=== PATIENT | female | born 1980 | race American Indian/Alaskan Native ===

== ENCOUNTER 2016-06-03 11:03 | Outpatient (CLI) | payer BC ==
--- NOTE | 2016-06-03 12:09 | Mammography Report ---
Bilateral mammogram: The patient is post right lumpectomy, radiation and chemotherapy. Comparison is made to her prior screening exam in May 2015 as well as a diagnostic right breast exam in June 2015. There has been surgical removal of most of the right breast calcifications. There is a small grouping of microcalcifications adjacent to the surgical site which is slightly pleomorphic but not as dense and appear somewhat different than the original grouping. Magnification views were obtained. Additionally noted are scattered microcalcifications throughout the right breast that are not clearly identified on her prior mammograms. None of these are overtly suspicious. The overall breast pattern remains dense but not significantly changed. There is marked thickening of the skin in the lateral breast consistent with radiation. Left breast pattern appears unchanged from her prior study in May. CAD used. Impressions: Postoperative/treatment changes of right breast cancer. The residual calcifications in the area of cancer do not appear the same as the original calcifications. Other calcifications in the breast appear to be new but do not appear suspicious and may be related to her therapy. Recommendation: Repeat right mammogram in 6 months to reevaluate the calcifications. BI-RADS CATEGORY: 3 = Probably benign ACR BI-RADS MAMMOGRAPHIC CODES: 0 = Needs additional imaging evaluation; 1 = Negative; 2 = Benign; 3 = Probably benign; 4 = Suspicious; 5 = Malignant; 6 = Known biopsy-proven malignancy COMMENT: 1. Dense breast tissue, i.e., adenosis, fibrocystic changes, etc., may obscure an underlying neoplasm. 2. Approximately 10% of cancers are not detected with mammography. 3. A negative mammography report should not delay biopsy if a clinically suspicious mass is present.
== END 2016-06-03 11:04 | disposition home or self-care (01) ==
LOC: SPVWC 11:03
PROVIDERS: ATTEND Surgery
DX: R92.0 Mammographic microcalcification found on diagnostic imaging of breast (principal); Z85.3 Personal history of malignant neoplasm of breast; Z98.890 Other specified postprocedural states
CPT/HCPCS: 77066; G0204

== ENCOUNTER 2016-11-18 09:50 | Outpatient (CLI) | payer BC ==
--- NOTE | 2016-11-18 11:06 | Mammography Report ---
RIGHT DIGITAL DIAGNOSTIC MAMMOGRAM WITH CAD: 11/18/16 09:50:00 CLINICAL: History of breast cancer status post partial mastectomy, radiation therapy and chemotherapy. Persistent calcifications are being followed. COMPARISON:06/03/16 FINDINGS: The breast is heterogeneously dense, which may obscure small masses.Routine views without and with magnification were performed and demonstrate a few scattered predominantly outer calcifications with no suspicious forms. A linear and pleomorphic calcifications identified on the last exam are no longer seen. No mass or architectural distortion. IMPRESSION: No mammographic evidence of malignancy. BI-RADS CATEGORY: 2 -- Benign RECOMMENDATION: Routine mammographic screening. She will be due for a bilateral mammogram in May 2017. ACR BI-RADS MAMMOGRAPHIC CODES: 0 = Needs additional imaging evaluation; 1 = Negative; 2 = Benign; 3 = Probably benign; 4 = Suspicious; 5 = Malignant; 6 = Known biopsy-proven malignancy COMMENT: 1. Dense breast tissue, i.e., adenosis, fibrocystic changes, etc., may obscure an underlying neoplasm. 2. Approximately 10% of cancers are not detected with mammography. 3. A negative mammography report should not delay biopsy if a clinically suspicious mass is present. COMMENT: Patient follow-up letters are generated via our [employer] application.
== END 2016-11-18 09:51 | disposition home or self-care (01) ==
LOC: SPVWC 09:50
PROVIDERS: ATTEND Surgery
DX: R92.1 Mammographic calcification found on diagnostic imaging of breast (principal); Z85.3 Personal history of malignant neoplasm of breast; Z90.10 Acquired absence of unspecified breast and nipple
CPT/HCPCS: G0206-RT

== ENCOUNTER 2017-06-10 09:47 | Outpatient (CLI) | payer BC ==
--- NOTE | 2017-06-10 10:42 | Mammography Report ---
BILATERAL DIGITAL SCREENING MAMMOGRAM WITH CAD: 06/10/17 09:47:00 CLINICAL: Routine screening.Breast cancer survivor status post right partial mastectomy . COMPARISON:06/09/15 screening and right mammograms from 11/18/16 and 06/03/16. FINDINGS: The breasts are heterogeneously dense, which may obscure small masses. Stable right upper outer postsurgical scar. A few benign calcifications in the upper-outer right breast. Stable mild skin thickening of the right breast. No mass, suspicious architectural distortion or suspicious calcifications. IMPRESSION: No mammographic evidence of malignancy. BI-RADS CATEGORY: 2 -- Benign RECOMMENDATION: Routine mammographic screening in one year. COMMENT: Patient follow-up letters are generated via our [email or web address] application.
== END 2017-06-10 09:48 | disposition home or self-care (01) ==
LOC: SPVWC 09:47
PROVIDERS: ATTEND Surgery
DX: Z12.31 Encounter for screening mammogram for malignant neoplasm of breast (principal); Z90.11 Acquired absence of right breast and nipple
CPT/HCPCS: 77067

== ENCOUNTER 2018-06-16 08:21 | Outpatient (CLI) | payer BC ==
--- NOTE | 2018-06-16 09:22 | Mammography Report ---
BILATERAL DIGITAL SCREENING MAMMOGRAM WITH CAD: 06/16/18 08:21:00 CLINICAL: Routine screening.Breast cancer survivor status post right partial mastectomy and radiation therapy. COMPARISON:06/10/17 FINDINGS: The breasts are heterogeneously dense, which may obscure small masses. Stable right upper outer postsurgical scar. No mass, suspicious architectural distortion or suspicious calcifications. IMPRESSION: No mammographic evidence of malignancy. BI-RADS CATEGORY: 2 -- Benign RECOMMENDATION: Routine mammographic screening in one year. COMMENT: Patient follow-up letters are generated via our [employer] application.
== END 2018-06-16 08:22 | disposition home or self-care (01) ==
LOC: SPVWC 08:21
PROVIDERS: ATTEND Surgery
DX: Z12.31 Encounter for screening mammogram for malignant neoplasm of breast (principal); E78.00 Pure hypercholesterolemia, unspecified; J45.909 Unspecified asthma, uncomplicated
CPT/HCPCS: 77067

== ENCOUNTER 2020-05-09 09:42 | Outpatient (CLI) | payer BC ==
--- NOTE | 2020-05-09 12:40 | Magnetic Resonance Report ---
Bilateral breast MR without and with contrast. History: History of right upper outer breast malignancy, status post right breast lumpectomy. Patient has a recent diagnosis of DCIS within the right lateral breast (stereotactic biopsy performed at an outside facility). Comparison: 06/16/2018, 07/20/2015. Technique: Multiplanar multisequence MR images of the breast were obtained before and after the intra venous administration of 15 mL of Clariscan contrast agent. Post processing analysis and review was p erformed on a separate computer workstation. Findings: Breast composition is heterogeneously dense. There is mild background enhancement in both breasts. RIGHT BREAST: Located within the right breast at the 9:00 anterior position is a 1.9 x 1.1 x 1.2 cm h ematoma. A biopsy marker is located centrally within this mass. This likely represents the site of re cently reported stereotactic biopsy which revealed DCIS. No enhancing mass, non-masslike enhancement, or other abnormal enhancement is identified at this site or elsewhere within the right breast. Posts urgical changes within the right lateral posterior breast is noted at site of prior lumpectomy with s mall seroma noted. LEFT BREAST: No enhancing mass, dominant focus, or other abnormal enhancement is identified within th e left breast. No abnormal axillary or internal mammary lymph nodes. Impression: There is a small hematoma in the right breast at the 9:00 anterior position. This likely reflects the site of outside stereotactic biopsy which revealed DCIS. No suspicious enhancement is identified wit hin the right breast. No findings to suggest further extent of disease, however MRI is not entirely s ensitive for the detection of DCIS. BIRADS 6: Known biopsy proven malignancy. A normal MRI does not exclude the presence of some forms of breast malignancy as literature reports s uggest that some forms of ductal carcinoma in situ or lobular carcinoma, particularly, may not be det ected on MRI. The sensitivity and specificity of MRI for cancers under 5 mm may be reduced. MRI does not replace the recommendation for annual conventional mammographic evaluation and should be used as an adjunct to mammography and physical examination as necessary. Signer Name: Michael Alfonso MD Signed: 05/09/2020 12:35 PM Workstation Name: [id number]
== END 2020-05-09 09:43 | disposition home or self-care (01) ==
LOC: SPVIMAG 09:42
PROVIDERS: ATTEND Surgery
DX: C50.411 Malignant neoplasm of upper-outer quadrant of right female breast (principal); N64.89 Other specified disorders of breast
CPT/HCPCS: A9575; C8908; 77049

== ENCOUNTER 2020-06-21 09:01 | Observation (INO) | payer BC ==
--- NOTE | 2020-06-16 13:20 | Anesthesia Consultation ---
Anesthesia Consult and Med Hx Date of service: 06/21/20 - Airway Anesthetic Teeth Evaluation: Good ROM Head & Neck: Adequate Mental/Hyoid Distance: Adequate Mallampati Class: Class II Intubation Access Assessment: Probably Good - Pulmonary Exam CTA: Yes - Cardiac Exam Cardiac Exam: RRR - Pre-Operative Health Status ASA Pre-Surgery Classification: ASA2 Proposed Anesthetic Plan: General Nerve Block: PECS II vs ES - Pulmonary Hx Smoking: No Hx Asthma: Yes (no recent inhaler use) Hx Respiratory Symptoms: No (COVID 02/2020, no hospitalization; persistent loss of taste/smell only) - Cardiovascular System Hx Hypertension: No Hx Heart Attack/AMI: No - Central Nervous System CVA: No - Endocrine Hx Renal Disease: No Hx Liver Disease: No Hx Insulin Dependent Diabetes: No Hx Non-Insulin Dependent Diabetes: No Hx Thyroid Disease: No - Other Systems Hx Cancer: Yes (hx breast ca s/p chemo 2016) - Additional Comments Anesthesia Medical History Comments: Hx PDPH w/ epidural but no complications with GA. Had outpatient labs drawn recently; records requested.
[~2020-06-21 09:01] MED LIST: ACETAMINOPHEN 500 MG TAB PO SCH; BACITRACIN 50,000 UNIT VIAL IR ONE; CELECOXIB 200 MG CAP PO NR; GABAPENTIN 300 MG CAP PO NR; GENTAMICIN 40 MG/ML VIAL 2 ML IV ONE; LACTATED RINGERS 1,000 ML IV SCH; MIDAZOLAM 2 MG/2 ML INJ IV NR; SCOPOLAMINE TRANSDERMAL PATCH 72 HR TD NR; VANCOMYCIN 1,250 MG in SODIUM CHLORIDE 0.9% 500 ML 250 ML IV ONE; WATER FOR IRRIG STERILE 1,500 ML BOTTLE IR ONE; ceFAZolin 1 GM VIAL IV ONE; fentaNYL 100 MCG/2 ML INJ IV PRN
[2020-06-21] MEDS ORDERED: METHYLENE BLUE 50 MG/10 ML AMP ONE (09:52)
[2020-06-21] MEDS ORDERED: GENTAMICIN 40 MG/ML VIAL 2 ML ONE (09:53)
[2020-06-21] MEDS ORDERED: SODIUM CHLORIDE P/F VIAL 10 ML 30 ML ONE (09:53)
[2020-06-21] MEDS ORDERED: BACITRACIN 50,000 UNIT VIAL ONE (09:53)
[2020-06-21] MEDS ORDERED: ceFAZolin 1 GM VIAL ONE (09:54)
[2020-06-21] MEDS ORDERED: ONDANSETRON 4 MG/2 ML INJ IV PRN ×2 (10:23→15:00)
[2020-06-21] MEDS ORDERED: HYDROmorphone 1 MG/1 ML INJ IV PRN (10:23)
--- NOTE | 2020-06-21 10:23 | Anesthesia Day of Surgery ---
Anesthesia Day of Surgery - Day of Surgery Patient Examined: Yes Patient H&P Reviewed: Yes Patient is NPO: Yes
[2020-06-21] MEDS ORDERED: BUPIVACAINE/PF (0.25%) 2.5 MG/ML 30 ML VIAL INFILTRATI ONE (11:02)
[2020-06-21] MEDS ORDERED: dexAMETHasone 4 MG/ML VIAL ONE (11:02)
[2020-06-21] MEDS ORDERED: fentaNYL 100 MCG/2 ML INJ ONE (11:29)
[2020-06-21] MEDS ORDERED: ROCURONIUM 50 MG/5 ML INJ IV ONE (11:29)
[2020-06-21] MEDS ORDERED: LIDOCAINE MPF (2%) 20 MG/1 ML VIAL 5 ML ONE (11:29)
[2020-06-21] MEDS ORDERED: propofoL 200 MG/20 ML VIAL IV ONE (11:30)
[2020-06-21] MEDS ORDERED: VANCOMYCIN 1,250 MG in SODIUM CHLORIDE 0.9% 500 ML 250 ML IV ONE (11:30)
[2020-06-21] MEDS ORDERED: SODIUM CHLORIDE 0.9% P/F 10 ML VIAL INFILTRATI ONE (11:57)
[2020-06-21] MEDS ORDERED: METHYLENE BLUE 50 MG/10 ML AMP IRRIGATION ONE (11:57)
[2020-06-21] MEDS ORDERED: PHENYLEPHRINE/NS 1,000 MCG/10 ML SYRINGE (OR USE) IV ONE (12:27)
[2020-06-21] MEDS ORDERED: SODIUM CHLORIDE 0.9% IRR 1,500 ML BOTTLE IR ONE ×2 (12:37→14:16)
[2020-06-21] MEDS ORDERED: WATER FOR IRRIG STERILE 1,500 ML BOTTLE IR ONE (14:07)
--- NOTE | 2020-06-21 14:14 | Mammography Report ---
BREAST SPECIMEN RADIOGRAPH HISTORY: Lumpectomy FINDINGS/IMPRESSION: The submitted radiograph or radiographs demonstrate(s) the presence of 2 biopsy markers within fibrog landular tissue. No localization wire is present. Signer Name: Debi Trinidad MD Signed: 06/21/2020 2:10 PM Workstation Name: [id number]
[2020-06-21] MEDS ORDERED: BACITRACIN 50,000 UNIT VIAL IR ONE (14:16)
[2020-06-21] MEDS ORDERED: GENTAMICIN 40 MG/ML VIAL 2 ML IV ONE (14:16)
[2020-06-21] MEDS ORDERED: ceFAZolin 1 GM VIAL IV ONE (14:16)
--- NOTE | 2020-06-21 14:21 | Short Stay Summary ---
Short Stay Documentation Date of service: 06/21/20 - History H&P: obtained from office - Allergies and Medications Current Medications: Allergies amoxicillin Allergy (Verified 06/14/20 17:09) Hives Home Medications Medication Instructions Recorded Confirmed Last Taken Type Anastrozole [Arimidex] 1 mg PO DAILY 06/14/20 06/14/20 06/20/20 History Calcium Citrate/Vitamin D3 1 each PO DAILY 06/14/20 06/14/20 06/20/20 History [Citracal + D Maximum Caplet] Fexofenadine HCl [Carrie Allergy] 180 mg PO DAILY 06/14/20 06/14/20 06/20/20 History Venlafaxine [Effexor 25mg tab] 25 mg PO DAILY 06/14/20 06/14/20 06/20/20 History Vit C/Vit D3/E/Zinc/Elderberry 1 each PO DAILY 06/14/20 06/14/20 06/20/20 History [Airborne Elderberry Gummy] Active Medications Acetaminophen (Acetaminophen 500 Mg Tab) 1,000 mg PO PREOP SCOTT Stop: 06/21/20 23:59 Last Admin: 06/21/20 10:30 Dose: 1,000 mg Documented by: Fentanyl (Fentanyl 100 Mcg/2 Ml Inj) 100 mcg IV ONCE PRN PRN Reason: sedation for nerve block Last Admin: 06/21/20 11:07 Dose: 100 mcg Documented by: Gabapentin (Gabapentin 300 Mg Cap) 300 mg PO PREOP NR Stop: 06/21/20 23:59 Last Admin: 06/21/20 10:30 Dose: 300 mg Documented by: Hydromorphone HCl (Hydromorphone 1 Mg/1 Ml Inj) 0.25 mg IV Q10MIN PRN PRN Reason: Pain, Moderate (4-6) Stop: 06/21/20 23:00 Hydromorphone HCl (Hydromorphone 1 Mg/1 Ml Inj) 0.5 mg IV Q10MIN PRN PRN Reason: Pain , Severe (7-10) Stop: 06/21/20 23:00 Lactated Ringer's (Lactated Ringers) 1,000 mls @ 100 mls/hr IV DIRECT SCOTT Stop: 06/21/20 23:59 Last Admin: 06/21/20 10:40 Dose: 100 mls/hr Documented by: Midazolam HCl (Midazolam 2 Mg/2 Ml Inj) 2 mg IV PREOP NR Stop: 06/21/20 23:59 Last Admin: 06/21/20 11:07 Dose: 2 mg Documented by: Ondansetron HCl (Ondansetron 4 Mg/2 Ml Inj) 4 mg IV ONCE PRN PRN Reason: Nausea And Vomiting Stop: 06/21/20 23:00 Scopolamine (Scopolamine Transdermal Patch 72 Hr) 1 each TD PREOP NR Stop: 06/24/20 05:59 Last Admin: 06/21/20 10:34 Dose: 1 each Documented by: - Brief post op/procedure progress note Date of procedure: 06/21/20 Pre-op diagnosis: Central breast DCIS Post-op diagnosis: same Procedure: Right total mastectomy with attempted SLNB Anesthesia: GETA Findings: Right total mastectomy with x2 clips present; no uptake within the axilla Surgeon: SHANTHI GONZALEZ Estimated blood loss: other (50 cc) Pathology: list Specimen disposition: to lab Condition: stable - Disposition Condition at discharge: Good Disposition: DC/TX-02 SHRT-TRM GEN HOSP IP Short Stay Discharge Plan Activity: other (no heavy lifting) Diet: regular Wound: keep clean and dry Follow up with: SHANTHI GONZALEZ MD [Staff Physician] - 7 Days
[2020-06-21] MEDS ORDERED: ePHEDrine SULFATE 50 MG/1 ML INJ ONE (14:24)
[2020-06-21] MEDS ORDERED: ONDANSETRON 4 MG/2 ML INJ ONE (14:36)
--- NOTE | 2020-06-21 14:38 | Operative Report ---
Operative Report Operative Report: Operative Report: Date of Service: June 21, 2020 Preoperative diagnosis: Right breast cancer of the central quadrant Postoperative diagnosis: Same Procedure: Right total mastectomy with attempted sentinel lymph node biopsy Surgeon: Rosa Eckert M.D. Guide Excursion: Jennifer Farnsworth M.D. Anesthesia: Gen. Findings: Right breast clips x2 present within right total mastectomy; attempted sentinel lymph node biopsy with no uptake Complications: None Drains: per Plastic Surgery Estimated blood loss: 50 cc Disposition: Plastic surgery proceeded with bilateral tissue environmental planning engineer placement Indications for operative procedure: This is a 39-year-old lady with a personal history of Stage I right breast cancer, [id number] ER/IL positive post right lumpectomy with SLNB followed by adjuvant chemoradiation therapy. Most recent screening and diagnostic right mammogram of suspicious retroareolar, central breast calcifications and stereotactic biopsy findings of intermediate grade DCIS ER/IL positive. Recommendations were to proceed with a right total mastectomy given prior radiation therapy and breast conservation contraindicated. She met with PRS and wished to proceed with immediate right tissue environmental planning engineer placement. She wished to proceed with the above procedure. Procedure in detail: Anesthesia placed right pectoral block. The patient was taken to the operating room and was placed supine. Gen. anesthesia was administered. The right nipple was injected with radioisotope and 1 cc of methylene blue. Right chest and axilla were prepped and draped in the normal sterile operative fashion. Timeout was performed. Typical mastectomy incision marking was made encompassing the NAC and known area of cancer retroareolar. Attention was taken towards the right breast. A gamma probe was inserted into the axilla to identify the sentinel lymph node location with no uptake noted within the axilla. A skin incision was made with a 10 blade knife and dissection taken down to the subcutaneous tissues. First began raising of the superior flap to the level of the clavicle superiorly and posteriorly to the pectoralis muscle. Followed by raising of the medial flap to the level of the sternum and posteriorly to the pectoralis muscle. Followed by raising of the lateral flap to the level of the latissimus dorsi muscle and taken down posteriorly. The gamma probe was inserted into the axilla, the axillary fascia was opened and no uptake within the axilla was present. No blue dye present as well and patient with prior right sentinel lymph node biopsy. Ultrasound was used and no suspicious or abnormal axillary lymph nodes were present. Given no abnormal axillary lymph nodes present clinically or on diagnostic imaging and patient with DCIS, did not proceed with an ALND. Then proceeded with raising of the inferior flap to the level of the inframammary fold taken posterior to the pectoralis muscle. Lateral breast at incision around 9:30 and upper outer quadrant noted for fibrosis, most probable given prior radiation and surgery. Upper outer quadrant at fibrotic area mastectomy skin flap was revised to ensure proper flap. The mastectomy/breast was removed from the pectoralis muscle without incident. The specimen was appropriately marked and sent to radiology with findings of x2 breast clips present and sent to pathology. Hemostasis was obtained. The chest wall cavity was irrigated. Plastic Surgery then proceeded with right tissue environmental planning engineer placement.
[2020-06-21] MEDS ORDERED: SODIUM CHLORIDE 0.9% 1000 ML 1,000 ML ONE (14:52)
[2020-06-21] MEDS ORDERED: SODIUM CHLORIDE 0.9% 1000 ML IV SOLN IR ONE (14:59)
[2020-06-21] MEDS ORDERED: diphenhydrAMINE 25 MG CAP PO PRN (15:00)
[2020-06-21] MEDS ORDERED: LACTATED RINGERS 1,000 ML IV SCH (15:00)
[2020-06-21] MEDS ORDERED: oxyCODONE /ACETAMINOPHEN 5-325MG TAB PO PRN (15:00)
[2020-06-21] MEDS ORDERED: ACETAMINOPHEN 325 MG TAB PO PRN (15:00)
[2020-06-21] MEDS ORDERED: METOCLOPRAMIDE 10 MG TAB PO PRN (15:00)
[2020-06-21] MEDS: HYDROmorphone 1 MG/1 ML INJ IV PRN ×2 (15:42→15:58)
--- NOTE | 2020-06-21 16:16 | Operative Report ---
DATE OF SURGERY: 06/21/2020 PREOPERATIVE DIAGNOSIS: Right breast cancer. POSTOPERATIVE DIAGNOSIS: Right breast cancer. PROCEDURE: Immediate breast reconstruction with tissue safety instructor and acellular dermal matrix. SURGEON: Dr. Augustine Monroe Jr. RETAIL CUSTOMER SERVICE REPRESENTATIVE: Dr. Alex Farnsworth. ANESTHESIA: General endotracheal tube anesthesia. DRAINS: ESCOBAR x2. SPECIMENS: None. COMPLICATIONS: None. ESTIMATED BLOOD LOSS: 10 mL. INDICATIONS: The patient is a 39-year-old woman, who presents with DCIS involving the right breast and is to undergo a formal mastectomy as performed by Dr. Eckert. We discussed reconstructive options with the patient and ultimately she has decided to proceed with immediate tissue safety instructor and ADM reconstruction. She understands the staged nature of reconstructive breast surgery and the need for subsequent procedures. Nature of the surgery, technical aspects, typical recovery period and potential risks involved were discussed fully including but not limited to postop bleeding, infection, pronounced scarring, hematoma or seroma formation, areas of paresthesias, numbness or pain which may be permanent, delayed healing, wound dehiscence, capsular contracture, asymmetry (anticipated), failure to achieve anticipated goals, need for revision or future surgery. DESCRIPTION OF PROCEDURE: The patient was already anesthetized. Dr. Eckert and I completed the right mastectomy. Flaps were inspected and were deemed of adequate thickness to proceed. Meticulous hemostasis throughout the case was accomplished with electrocautery. Subpectoral pocket was developed under direct vision with division of the inferior and inferomedial border of the pectoralis major muscle. A triply hydrated segment of FlexHD acellular dermal matrix was inserted into the lower pole after being oriented. This was a shaped, pliable and perforated 11 x 20 cm sheet and was sewn down to the chest wall at the inframammary fold set point with interrupted 0 PDS sutures. The superior border once trimmed to the appropriate size was sewn to the inferior border of the pectoralis major muscle with a running 0 Vicryl suture. A deflated [place] tissue safety instructor [id number] was placed into the subpectoral and sub-ADM pocket. The tabs were sewn down to the chest wall with interrupted 2-0 Vicryl suture. A deep 10-Russian ESCOBAR drain was placed and the superficial 7 mm ESCOBAR drain was placed exiting placed with 2-0 silk. The pocket was irrigated with copious amounts of triple antibiotic solution comprised of Ancef, gentamicin and bacitracin. Closure was then facilitated with a running 2-0 Vicryl at the level of subcutaneous tissue plane, 3-0 Monocryl at the level of deep dermis in interrupted manner and a running subcuticular 4-0 Monocryl stitch and then Dermabond skin glue. were placed at the ESCOBAR sites and dressings applied. The patient tolerated the procedure well, was extubated and transferred to the recovery area in stable condition. TID: [id number] RECEIPT: [id number] /NASIM/ANGELO
--- NOTE | 2020-06-21 19:19 | Post Anesthesia Evaluation ---
- Post Anesthesia Evaluation Patient Participated: Yes Airway Patent: Yes Stable Respiratory Function: Yes Nausea/Vomiting: No Temp > 96.8F: Yes Pain Manageable: Yes Adequeate Hydration: Yes Anesthesia Complications: No Block Receding Appropriately: Yes Patient on Ventilator: No
[2020-06-21] MEDS: MORPHINE 2 MG/1 ML INJ IV PRN ×2 (19:38→23:28)
[2020-06-21] MEDS: CLINDAMYCIN 300 MG CAP PO SCH (20:05)
[2020-06-21] MEDS ORDERED: DOCUSATE SODIUM 100 MG CAP PO SCH (22:00)
[2020-06-22] MEDS: HYDROmorphone 2 MG TAB PO PRN ×2 (02:03→11:06)
[2020-06-22] MEDS: CLINDAMYCIN 300 MG CAP PO SCH (08:12)
--- NOTE | 2020-06-22 12:26 | Progress Note ---
Assessment and Plan This is a 39 year old lady with right breast DCIS, Stage 0; personal history of Stage I right breast cancer. POD#1 right total mastectomy with tissue outdoor adventure guides placement. 1. No acute events overnight. 2. Pain in good control. 3. Right chest incision healing well. 4. ESCOBAR drain education. 5. OOB to hallway. 6. D/C planning for today. Subjective Date of service: 06/22/20 Principal diagnosis: Right breast cancer Interval history: POD#1 right total mastectomy with attempted SLNB and tissue outdoor adventure guides placement Objective - Constitutional Vitals: Vital Signs - 12hr 06/22/20 06/22/20 06/22/20 01:30 05:12 08:11 Temperature 98.7 F 98.9 F 98.2 F Pulse Rate 83 85 71 Respiratory 18 20 18 Rate Blood Pressure 128/80 119/71 132/80 O2 Sat by Pulse 100 100 100 Oximetry General appearance: Present: no acute distress - EENT Eyes: PERRL, EOM intact ENT: hearing intact, clear oral mucosa, dentition normal Ears: bilateral: normal - Neck Neck: supple, normal ROM - Respiratory Respiratory effort: normal - Breasts Breasts: other (right chest incision healing well, skin well perfused, no hematoma; ESCOBAR drains to bulb suction) - Cardiovascular Rhythm: regular Extremities: no ischemia, pulses intact, pulses symmetrical, No edema, normal temperature, normal color, Full ROM - Gastrointestinal General gastrointestinal: Present: soft, non-tender, non-distended Rectal Exam: deferred - Genitourinary Female genitourinary: deferred - Integumentary Integumentary: clear, warm, dry - Musculoskeletal Musculoskeletal: strength equal bilaterally - Neurologic Neurologic: CNII-XII intact, moves all extremities - Psychiatric Psychiatric: appropriate mood/affect, intact judgment & insight, memory intact, cooperative Medications & Allergies - Medications Allergies/Adverse Reactions: Allergies amoxicillin Allergy (Verified 06/14/20 17:09) Hives Home Medications: Home Medications Medication Instructions Recorded Confirmed Last Taken Type Anastrozole [Arimidex] 1 mg PO DAILY 06/14/20 06/14/20 06/20/20 History Calcium Citrate/Vitamin D3 1 each PO DAILY 06/14/20 06/14/20 06/20/20 History [Citracal + D Maximum Caplet] Fexofenadine HCl [Carrie Allergy] 180 mg PO DAILY 06/14/20 06/14/20 06/20/20 History Venlafaxine [Effexor 25mg tab] 25 mg PO DAILY 06/14/20 06/14/20 06/20/20 History Vit C/Vit D3/E/Zinc/Elderberry 1 each PO DAILY 06/14/20 06/14/20 06/20/20 History [Airborne Elderberry Gummy] Active Medications: Generic Name Dose Route Start Last Admin Trade Name Freq PRN Reason Stop Dose Admin Acetaminophen 650 mg 06/21/20 15:00 Acetaminophen 325 Mg Tab PO Q6H PRN Pain MILD(1-3)/Fever >100.5/MOFFETT Clindamycin HCl 300 mg 06/21/20 20:00 06/22/20 08:12 Clindamycin 300 Mg Cap PO 300 mg TID SCOTT Administration Protocol Diphenhydramine HCl 25 mg 06/21/20 15:00 Diphenhydramine 25 Mg Cap PO Q8H PRN Itching Docusate Sodium 100 mg 06/21/20 22:00 06/22/20 11:06 Docusate Sodium 100 Mg Cap PO 100 mg BID SCOTT Administration Fentanyl 100 mcg 06/21/20 06:00 06/21/20 11:07 Fentanyl 100 Mcg/2 Ml Inj IV 100 mcg ONCE PRN Administration sedation for nerve block Hydromorphone HCl 2 mg 06/21/20 15:00 06/22/20 11:06 Hydromorphone 2 Mg Tab PO 2 mg Q6H PRN Administration Pain , Severe (7-10) Lactated Ringer's 1,000 mls @ 125 mls/hr 06/21/20 15:00 Lactated Ringers IV DIRECT SCOTT Metoclopramide HCl 10 mg 06/21/20 15:00 06/21/20 19:39 Metoclopramide 10 Mg Tab PO 10 mg Q6H PRN Administration Nausea And Vomiting Morphine Sulfate 2 mg 06/21/20 15:00 06/21/20 23:28 Morphine 2 Mg/1 Ml Inj IV 2 mg Q4H PRN Administration Pain, Moderate (4-6) Ondansetron HCl 4 mg 06/21/20 15:00 06/21/20 23:28 Ondansetron 4 Mg/2 Ml Inj IV 4 mg Q8H PRN Administration N/V unrelieved by Reglan Oxycodone/Acetaminophen 1 tab 06/21/20 15:00 06/22/20 06:06 Oxycodone /Acetaminophen 5-325mg Tab PO 1 tab Q6H PRN Administration Pain, Moderate (4-6) Scopolamine 1 each 06/21/20 06:00 06/21/20 10:34 Scopolamine Transdermal Patch 72 Hr TD 06/24/20 05:59 1 each PREOP NR Administration Sodium Chloride 10 ml 06/21/20 15:00 Sodium Chloride 0.9% 10 Ml Flush Syringe IV PRN PRN LINE FLUSH
[2020-06-22 12:48] VITALS: BP 115/73
== END 2020-06-22 12:40 | disposition home or self-care (01) ==
LOC: OR 09:01 → OB 14:38
PROVIDERS: ADMIT Surgery; ATTEND Surgery
DX: C50.411 Malignant neoplasm of upper-outer quadrant of right female breast (principal); Z20.822 Contact with and (suspected) exposure to COVID-19; Z85.3 Personal history of malignant neoplasm of breast; Z79.899 Other long term (current) drug therapy
CPT/HCPCS: 19303; 19357; 64450; 76098; 78800; 81025; 88305; 88307; 88309; 88333; 96374; 96375; 96376; A9541; C1789; G0378; J0690; J1100; J1170; J1580; J2250; J2270; J2370; J2405; J2704; J3010; J3370; J7030; J7040; J7120; Q4128; Q9968; U0003; 88342